=== PATIENT | male | born 1955 ===

== ENCOUNTER 2018-09-01 07:21 | Observation (INO) | payer OTHER ==
[2018-08-26 09:18] VITALS: BMI 29.3
[2018-09-01] MEDS ORDERED: Lidocaine 1% 5ml Abboject ONE (10:12)
[2018-09-01] MEDS ORDERED: Rocuronium 10 mg/ml (5 ml) ONE (10:12)
[2018-09-01] MEDS ORDERED: Midazolam 2 MG/2 ML VIAL ONE (10:12)
[2018-09-01] MEDS ORDERED: Lidocaine 4% (Laryng-O-Jet) Kit MM ONE (10:12)
[2018-09-01] MEDS ORDERED: Succinylcholine 200 mg/10 ml Inj IV ONE (10:12)
[2018-09-01] MEDS ORDERED: Propofol 10 mg/ml Inj (20 ML) ONE (10:12)
[2018-09-01] MEDS ORDERED: ceFAZolin IV 1 gm in Dextrose 1 GM/50 ML BAG IVPB ONE ×2 (10:21→10:27)
[2018-09-01] MEDS ORDERED: Gentamicin 80mg/50ml NS 80 MG/50 ML BAG IVPB ONE (10:21)
[2018-09-01] MEDS ORDERED: Gentamicin 80 mg/2mL Inj. ONE ×2 (10:22→10:38)
[2018-09-01] MEDS ORDERED: Lactated Ringer's 1,000 ML IV ONE (10:25)
[2018-09-01] MEDS ORDERED: Sevoflurane - Inhalation Anesthetic Liq (250 ml) ONE (11:01)
[2018-09-01] MEDS ORDERED: Lactated Ringer's 1,000 ML IV SCH (14:00)
[2018-09-01] MEDS: Sodium Chloride 0.9% 1,000 ML IV SCH ×2 (17:34→22:28)
[2018-09-02 00:01] VITALS: RESP 20
--- NOTE | 2018-09-02 01:56 | OP ---
PROCEDURE DATE: 09/01/2018 PREOPERATIVE DIAGNOSES: 1. Benign prostatic hypertrophy with urinary obstruction. 2. Urinary retention. POSTOPERATIVE DIAGNOSES: 1. Benign prostatic hypertrophy with urinary obstruction. 2. Urinary retention. PROCEDURES: 1. Cystoscopy. 2. Transurethral photovaporization of the prostate. 3. Transurethral resection of the prostate. SURGEON: Jose Bermudez MD BRICKMASON CONTRACTOR: Jonah Thomas MD ANESTHESIA: General. ESTIMATED BLOOD LOSS: 75 mL. INTRAVENOUS FLUIDS PLACED: As per Anesthesia. DRAINS: A 22-Hungarian 3-way Clarke catheter. SPECIMEN SENT: Prostate chips. CONDITION: Stable to the recovery room. INDICATION: This is a 63-year-old male with extensive urologic history dating back to 03/2018. He presented initially to an outside hospital with urinary retention and acute renal failure. At that time, he had to undergo urethral dilation for distal urethral stricture with Clarke placement. Subsequently, he underwent multiple trials of void in attempt to get him to urinate. He was on maximum medical therapy; however, he again failed to void during several occasions. Bladder ultrasound revealed a very large median lobe to his prostate which is likely causing his obstruction. I discussed with the patient that given his inability to void despite maximum medical therapy as well as the presence of the large median lobe that he would most benefit from a transurethral procedure to open up his bladder outlet. It took quite some time for the patient to get insured as he was originally seen as an emergency and had no insurance. After quite some time, the patient has managed to get insurance, and he had to undergo medical clearance which also took some time. Finally, he was cleared for the procedure and with insurance in place, we were able to book him electively for a transurethral procedure. The risks and benefits of the surgery were discussed with the patient. The patient understands all these risks and benefits and wishes to proceed with transurethral photovaporization of the prostate. DESCRIPTION OF PROCEDURE: The patient was brought into the operating room and was placed in supine position. After administration of perioperative antibiotics and induction of general anesthesia, he was repositioned into dorsal lithotomy. His hip, knees, and ankles were all appropriately padded. Venodynes were placed and turned on. His previously placed Clarke catheter was then removed. His lower abdomen and genitalia were then prepped and draped in the usual sterile fashion. A time-out was called. We started the procedure by introducing the 23-Hungarian continuous flow GreenLight laser scope into the penis. Cystourethroscopy was performed. The anterior urethra appeared grossly normal. The prostatic urethra was remarkable for enlarged lateral lobes. In addition, the patient had a very large median lobe with an extensive intravesical component. The bladder was noted to be very trabeculated. There were no tumors or stones noted within the bladder. There was difficulty identifying the ureteral orifices because of large median lobe. The left ureteral orifice could be identified but the right could not on this initial cystoscopy. At this point, we began vaporizing the median lobe of the prostate. We were able to laser approximately half of the median lobe of the prostate, but because of the extensive intravesical component of the median lobe, We decided that it would be safer to resect the remaining portion of intravesical lobe of the prostate rather than to extend the laser in the bladder itself. Therefore at this point, we switched over to a monopolar resectoscope using a loop. The remainder of the median lobe was completely resected down to the bladder base. Careful attention was made not to injure the bladder. At this point, with the median lobe completely resected, bilateral ureteral orifices could be identified and were unharmed and in their normal orthotopic position. We continued our resection of the lateral lobes from the bladder neck to just proximal to the verumontanum. Careful attention was made not to resect the bladder and not to resect distal to the verumontanum. At the conclusion of this resection, we used an Ellik evacuator to remove all the prostate chips. Next, we switched over to VaporTrode electrode which we used to gain excellent hemostasis of the prostatic fossa. With the irrigation off and the bladder collapse, the prostatic fossa was noted to be hemostatic without any significant bleeding. The bladder was then left full with irrigant and at this point, a 22-Hungarian 3-way Clarke catheter was placed within the bladder and placed to a gravity drainage. Then, 40 mL of water was used to inflate the balloon. Continuous bladder irrigation was then attached to the catheter to the gravity drainage. This concluded the procedure. The patient was awakened from anesthesia and transferred to recovery room in stable condition. The patient tolerated the procedure well. Jose Bermudez M.D. [facility] # [id number] HANK
[2018-09-02] MEDS: Sodium Chloride 0.9% 1,000 ML IV SCH (06:11)
[2018-09-02 07:48] VITALS: BP 134/82; PULSE 80; TEMP 98.3; O2SAT 96
--- NOTE | 2018-09-02 09:52 | PN ---
DATE: 09/02/2018 SUBJECTIVE: The patient is well this morning. He is sitting in his chair. He tolerated the CBI overnight well without any complaints. His urine this morning with CBI office very likely blood tinged. He is not complaining of any bladder spasms. He has been tolerating his diet so far, and he has been ambulating. OBJECTIVE: VITALS: The patient is afebrile with normal vital signs this morning. ABDOMEN: His abdomen is soft, nontender, nondistended. His Clarke catheter is to gravity drainage, draining lightly blood-tinged urine off of CBI. ASSESSMENT AND PLAN: This is a 63-year-old male, status post transurethral resection of prostate for benign prostatic hyperplasia and urinary retention. Plan for today is for him to be discharged home with Clarke to leg bag. I discussed with him the plan to remove his catheter for trial of void on Thursday. He will also go home with several days of antibiotics, namely Ciprofloxacin 500 mg b.i.d. until Thursday. He should also continue his Flomax which he has a supply at home. He is amenable to his plan, and he is looking forward to leaving today. I will put the discharge order in the computer, and he will go home with the assistance of his . Jose Bermudez M.D.
== END 2018-09-02 10:31 | disposition home or self-care (01) ==
LOC: H.OPSURG 07:21 → H.ERHOLD 15:33 → H.MEDSURG1 16:25
PROVIDERS: ADMIT Urology; ATTEND Urology
DX: N40.1 Benign prostatic hyperplasia with lower urinary tract symptoms (principal); N13.8 Other obstructive and reflux uropathy; R33.8 Other retention of urine; I07.1 Rheumatic tricuspid insufficiency; I25.2 Old myocardial infarction
CPT/HCPCS: 52648; 88305; G0378; J0330; J0690; J1170; J1580; J2250; J2704; J2765; J3010; J7030; J7120